=== PATIENT | male | born 1950 | race Caucasian/White ===

== ENCOUNTER → 2016-08-05 | Outpatient (CLI) | payer OTHER ==
[~2016-08-05] MED LIST: ATOR-26 PO; LRT5 PO
[2016-08-05 10:35] LABS: ESTIMATED AVERAGE GLUCOSE 160 mg/dl; HA1C FLAG Normal (Normal)
== END | disposition home or self-care (01) ==
LOC: C.LAB1850 09:03
PROVIDERS: ATTEND Internal Medicine
DX: E78.00 Pure hypercholesterolemia, unspecified (principal); E11.9 Type 2 diabetes mellitus without complications

== ENCOUNTER → 2016-11-30 | Outpatient (CLI) | payer OTHER ==
[2016-11-30 10:19] LABS: BASO % 0.5 %; BASO ABS # 0.04 K/uL (0-0.2); COMPLETE YES; EOS % 3.1 %; HEMATOCRIT 42.5 % (42-52); LYMPH % 20.2 %; MEAN CELL VOLUME 94.4 fL (80-100); MEAN CORPUSCULAR HEMOGLOBIN 31.6 pg (25-34); MEAN CORPUSCULAR HGB CONC 33.4 g/dl (32-36); MEAN PLATELET VOLUME 9.2 fL (7.4-10.4); NEUT % 67.2 %; PLATELET COUNT 234 K/uL (130-400); WHITE BLOOD COUNT 7.42 K/uL (4.8-10.8)
[2016-11-30 10:32] LABS: ALT/SGPT 40 U/L (12-78); AST/SGOT 19 U/L (15-37); BLOOD UREA NITROGEN 16 mg/dl (7-18); CALCIUM 8.4 mg/dl (8.5-10.1); CARBON DIOXIDE 30 mmol/L (21-32); CHLORIDE 107 mmol/L (98-107); CREATININE 0.98 mg/dl (0.60-1.40); GLUCOSE 150 mg/dl (70-99); POTASSIUM 4.4 mmol/L (3.5-5.1); SODIUM 142 mmol/L (136-145)
[2016-11-30 10:37] LABS: CHOLESTEROL 171 mg/dl (0-200); CHOLESTEROL/HDL RATIO 3.6; HDL CHOLESTEROL 47 mg/dl; LDL CHOLESTEROL CALCULATED 99 mg/dl; TRIGLYCERIDES 123 mg/dl (0-150); VERY LOW DENSITY LIPOPROT CALC 25 mg/dl
[2016-11-30 10:58] LABS: ESTIMATED AVERAGE GLUCOSE 154 mg/dl; HA1C FLAG Normal (Normal)
== END | disposition home or self-care (01) ==
LOC: C.LAB1850 09:18
PROVIDERS: ATTEND Physician Assistant
DX: Z11.59 Encounter for screening for other viral diseases (principal); E78.00 Pure hypercholesterolemia, unspecified; E11.9 Type 2 diabetes mellitus without complications

== ENCOUNTER → 2017-03-10 | Outpatient (CLI) | payer OTHER ==
[2017-03-10 10:04] LABS: ESTIMATED AVERAGE GLUCOSE 163 mg/dl; HA1C FLAG Normal (Normal)
== END | disposition home or self-care (01) ==
LOC: C.LAB1850 09:18
PROVIDERS: ATTEND Physician Assistant
DX: E11.9 Type 2 diabetes mellitus without complications (principal)

== ENCOUNTER → 2017-07-26 | Outpatient (CLI) | payer OTHER ==
--- NOTE | 2017-07-27 07:28 | DIAGNOSTIC IMAGING REPORT ---
MRI OF THE LEFT SHOULDER WITHOUT CONTRAST CLINICAL HISTORY: Left shoulder pain following fall. Evaluate for rotator cuff tear. COMPARISON STUDY: No previous studies for comparison. TECHNIQUE: Utilizing a 1.5 Belia magnet, multiplanar, multiecho imaging of the left shoulder was performed without intravenous or intra-articular contrast. FINDINGS: Alignment of the left shoulder is anatomic. There is moderate acromioclavicular joint osteoarthritis and mild glenohumeral joint arthritis. There is no fracture or suspicious marrow or present. There is moderate focal edema within the anterior aspect of the left humeral head. There is intrasubstance increased T2 signal within the proximal long head of the biceps tendon which extends to the anchor. The labrum is suboptimally assessed on this nonarthrogram exam with motion artifact. There is a suspected superior labral tear which extends into the posterior glenoid labrum. Signal abnormality within subscapularis suggests a partial-thickness tear. There is no full-thickness rotator cuff tear. There is tendinopathy of distal supraspinatus. Infraspinatus and teres minor are intact. There is no joint effusion. IMPRESSION: 1. Partial thickness tear of subscapularis. Tendinopathy of distal supraspinatus. No full-thickness rotator cuff tear. No tendon retraction or muscular atrophy. 2. Intrasubstance fluid signal within the proximal long head of the biceps tendon which suggests a partial-thickness tear which likely extends to the anchor. Suspected posterior superior labral tear. 3. Moderate osteoarthritis of the left acromioclavicular joint and mild osteoarthritis of the left glenohumeral joint. Electronically signed by: Marek Archuleta M.D. 07/27/2017 7:27 AM Dictated Date/Time: 07/26/2017 2:38 PM
== END | disposition home or self-care (01) ==
LOC: C.MRIBC 13:33
PROVIDERS: ATTEND Orthopaedic Surgery
DX: M75.102 Unspecified rotator cuff tear or rupture of left shoulder, not specified as traumatic (principal)

== ENCOUNTER → 2017-10-14 | Outpatient (CLI) | payer OTHER ==
[2017-10-14 10:19] LABS: BASO % 0.6 %; BASO ABS # 0.03 K/uL (0-0.2); EOS % 4.2 %; EOS ABS # 0.23 K/uL (0-0.5); HEMATOCRIT 40.6 % (42-52); HEMOGLOBIN 13.9 g/dL (14.0-18.0); LYMPH % 28.5 %; LYMPH ABS # 1.55 K/uL (1.2-3.4); MEAN CELL VOLUME 92.5 fL (80-100); MEAN CORPUSCULAR HEMOGLOBIN 31.7 pg (25-34); MEAN CORPUSCULAR HGB CONC 34.2 g/dl (32-36); MEAN PLATELET VOLUME 8.9 fL (7.4-10.4); MONO % 10.3 %; MONO ABS # 0.56 K/uL (0.11-0.59); NEUT % 56.4 %; NEUT ABS # 3.07 K/uL (1.4-6.5); PLATELET COUNT 238 K/uL (130-400); RED CELL DISTRIBUTION WIDTH CV 12.7 % (11.5-14.5); RED CELL DISTRIBUTION WIDTH SD 42.9 fL (36.4-46.3); WHITE BLOOD COUNT 5.44 K/uL (4.8-10.8)
[2017-10-14 10:34] LABS: ALT/SGPT 39 U/L (12-78); AST/SGOT 19 U/L (15-37); BLOOD UREA NITROGEN 15 mg/dl (7-18); CALCIUM 8.8 mg/dl (8.5-10.1); CARBON DIOXIDE 28 mmol/L (21-32); CREATININE 1.01 mg/dl (0.60-1.40); GLUCOSE 143 mg/dl (70-99); POTASSIUM 4.2 mmol/L (3.5-5.1); SODIUM 138 mmol/L (136-145)
[2017-10-14 10:37] LABS: CHOLESTEROL 170 mg/dl (0-200); LDL CHOLESTEROL CALCULATED 96 mg/dl
[2017-10-14 11:17] LABS: HEMOGLOBIN A1C 7.2 % (4.5-5.6)
== END | disposition home or self-care (01) ==
LOC: C.LAB1850 09:14
PROVIDERS: ATTEND Physician Assistant
DX: E78.00 Pure hypercholesterolemia, unspecified (principal); E11.9 Type 2 diabetes mellitus without complications

== ENCOUNTER → 2017-10-18 | Outpatient (CLI) | payer OTHER ==
[~2017-10-18] MED LIST changes: +OPTIRAY 320 IV PRN
--- NOTE | 2017-10-18 14:47 | DIAGNOSTIC IMAGING REPORT ---
HEAD CT WITH AND WITHOUT INTRAVENOUS CONTRAST HISTORY: H53.2 Diplopia TECHNIQUE: Multiaxial CT images of the head were performed both before and after the intravenous administration of contrast. COMPARISON STUDY: None. FINDINGS: Partial passive use of the right ethmoid air cells. The remaining paranasal sinuses and mastoid air cells are clear. The calvarium and skull base are intact. There is no mass, hematoma, midline shift, acute infarct. The ventricles and sulci are within normal limits. Small hypodense focus within the right caudate head is consistent with an old lacunar infarct. No abnormal enhancement. The orbits are unremarkable. IMPRESSION: 1. No acute intracranial abnormality. 2. No abnormal enhancement or masses within the brain. 3. Punctate old lacunar infarct within the right caudate head. Electronically signed by: Sergei Rascon M.D. 10/18/2017 2:45 PM Dictated Date/Time: 10/18/2017 2:36 PM
== END | disposition home or self-care (01) ==
LOC: C.CTS 13:43
PROVIDERS: ATTEND Physician Assistant
DX: H53.2 Diplopia (principal)

== ENCOUNTER → 2018-01-13 | Outpatient (CLI) | payer OTHER ==
[~2018-01-13] MED LIST changes: -OPTIRAY 320 IV PRN
[2018-01-13 09:52] LABS: HEMOGLOBIN A1C 7.3 % (4.5-5.6)
== END | disposition home or self-care (01) ==
LOC: C.LAB1850 08:44
PROVIDERS: ATTEND Physician Assistant
DX: E11.9 Type 2 diabetes mellitus without complications (principal)

== ENCOUNTER 2025-01-22 15:31 | Observation (INO) ==
[2025-01-22] MEDS: OPTIRAY 320 125ml IV ONE (15:38)
--- NOTE | 2025-01-22 15:54 | CT Scan Report ---
CT head/brain wo con CLINICAL HISTORY: 74 years-old Male with neuro deficit, acute stroke suspected. Acute stroke like sy mptoms with confusion and facial droop TECHNIQUE: Multiple axial CT images of the head were obtained without contrast. A dose lowering tech nique was utilized adhering to the principles of ALARA. CT DOSE: 1056.37 mGy.cm COMPARISON: CTA head of same day FINDINGS: No acute intracranial hemorrhage, midline shift, intracranial mass, hydrocephalus, territorial ischem ia or abnormal extra-axial collection. Involutional changes with white matter hypodensities suggestiv e of chronic microvascular ischemic disease. Probable chronic tiny lacunar infarct of the right cauda te nuclear head. The calvarium is intact. Prior bilateral lens repair. The paranasal sinuses, mastoid air cells, and m iddle ear cavities are clear. IMPRESSION: No acute intracranial abnormality. ACT 112: Negative or not required by law. The above report was generated using voice recognition software. It may contain grammatical, syntax o r spelling errors. Electronically signed by: Imtiaz Hurst M.D. 01/22/2025 3:53 PM
--- NOTE | 2025-01-22 15:58 | CT Scan Report ---
CT angio head w con CLINICAL HISTORY: neuro deficit, acute stroke suspected. TECHNIQUE: Unenhanced axial CT scan of the brain is performed. Subsequently, following the IV adminis tration of 120 cc of Optiray, CT angiogram of the brain was performed from the skull base to the vert ex. Images are reviewed in the axial, sagittal, and coronal planes. 3-D MIPS images are created and a ssessed. IV contrast was administered without complication. All measurements were obtained according to NASCET criteria. A dose lowering technique was utilized adhering to the principles of ALARA. CT DOSE: 1056 COMPARISON STUDY: None FINDINGS: Distal internal carotid and vertebral arteries show no significant narrowing or occlusion. Anterior, middle, and posterior cerebral arteries are patent bilaterally. 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 No intracranial aneurysm seen. Cerebral venous sinuses opacify normall y. IMPRESSION: No significant arterial narrowing or occlusion seen at the brain. ACT 112: Negative or not required by law. The above report was generated using voice recognition software. It may contain grammatical, syntax o r spelling errors. Electronically signed by: Martin Blanc M.D. 01/22/2025 3:57 PM
--- NOTE | 2025-01-22 15:58 | CT Scan Report ---
CT angio neck with con CLINICAL HISTORY: 74 years-old Male with neuro deficit, acute stroke suspected. Acute stroke like symptoms COMPARISON STUDY: CTA head of same day TECHNIQUE: Following the IV administration of 119 mL of Optiray, CT angiogram of the neck was perform ed from the aortic arch to the skull base. Images are reviewed in the axial, sagittal, and coronal pl anes. 3-D MIPS images are created and assessed. IV contrast was administered without complication. Al l measurements were calculated based on NASCET criteria. A dose lowering technique was utilized adhe ring to the principles of ALARA. FINDINGS: Three-vessel morphology of the thoracic cord. Patency of the innominate and image subclavian arteries . Atherosclerosis of the carotid bulbs without high-grade stenosis. Patent and codominant vertebral a rteries. The basilar artery also appears patent. Stenosis of the left breast right V2 segments of the vertebral arteries at the level of C5-C6 secondary to a circumferential disc osteophyte complex with facet arthrosis. This causes approximately 70 % stenosis of the left vertebral artery. Lung apices appear clear. Emphysema with bronchial wall thickening. Mild biapical pleural-parenchymal scarring. Areas of mild mucous plugging. Multinodular thyroid goiter. Unremarkable soft tissues. 1.5 cm left maxillary sinus polyp. Degenerative changes of the cervical spine. IMPRESSION: 1. Atherosclerosis of the carotid bulbs without significant stenosis. 2. Short segment high-grade stenosis of the V2 segment left vertebral artery at the level of C5-C6 se condary to a circumferential disc osteophyte complex with facet arthrosis ACT 112: Negative or not required by law. The above report was generated using voice recognition software. It may contain grammatical, syntax o r spelling errors. Electronically signed by: Imtiaz Hurst M.D. 01/22/2025 3:57 PM
--- NOTE | 2025-01-22 16:06 | Emergency Department Note ---
Impression & Plan Facial droop, Acute left-sided weakness, Stroke-like symptoms, Hypomagnesemia, Hypocalcemia, Anemia ED Provider Note NAME: SAMEER MONTAÑO AGE: 74 SEX: M : 1950 ARRIVES VIA: Ambulance INFORMANT: [Patient][EMS] ED PROVIDER(S): [Luis Talavera MD] Patient first seen by me at 1545 CHIEF COMPLAINT: Stroke alert HISTORY OF PRESENT ILLNESS: Patient is a 74-year-old male who states that he woke up normal at around 530 this morning. At around 7-730, around 9 hours ago, he noticed his left face was droopy and he had some drooling from the left side of his mouth--he did not seek medical attention. Later in the day, the patient was doing work outside and felt that the left side of his body was weaker than the right. The left facial droop was persisting. He eventually went to urgent care and then was referred to our ER. The patient denies any chest pain or shortness of breath. He has never had a CVA. He has no headache. PMHx/PSHx/Social Hx: See Below PHYSICAL EXAM: GENERAL: Patient is in no acute distress. HEENT: No acute trauma, normocephalic atraumatic, mucous membranes moist, no nasal congestion. NECK: No stridor, no adenopathy, no meningismus, trachea is midline. LUNGS: Wheezing heard bilaterally, no respiratory distress. HEART: Without murmurs gallops or rubs, regular rate and rhythm. ABDOMEN: Soft, nontender, no peritonitis. EXTREMITIES: No cyanosis, full range of motion of all the joints without pain or difficulty. NEUROLOGIC: Oriented x 3. There is no extremity drift or cerebellar dysfunction. He does have a left facial droop. He has normal movement of the muscles of the forehead and can close the left eye normally. SKIN: No jaundice, no diaphoresis. DIFFERENTIAL DIAGNOSIS: CVA, Wang's palsy, intracranial bleeding, dehydration, tickborne illness, among others. EMERGENCY DEPARTMENT PROCEDURES: MEDICAL DECISION MAKING: There is no leukocytosis. A mild anemia was seen with a hemoglobin of 11.2. There was a normal platelet count. No coagulopathy. No renal failure. Magnesium and calcium were both low. No worrisome liver enzyme elevation. ECG showed a normal sinus rhythm, no ischemia or dysrhythmia. Cardiac enzyme testing x 1 was not consistent with acute cardiac injury. Chest x-ray showed some chronic change, no pneumonia. Anaplasmosis and Babesia smears were negative. Lyme disease testing was negative. Brain CT showed no acute bleed or mass effect. CTA of the head and neck were performed. There was some vertebral stenosis secondary to some cervical disease. No clot/thrombus seen. No aneurysm. On exam, the patient had a left facial droop but no significant deficits noted in his upper or lower extremities. The patient had presented at this is a stroke alert, this was called in the field. He went directly to CT scan and I performed my assessment afterwards. The stroke neurologist was consulted and an assessment was performed via telemedicine. The patient is not a TNK candidate. He is out of the window for TNK, his symptoms began sometime this morning. Admission, further stroke workup was felt warranted. In short, the patient has some subtle neurologic symptoms. He is already on dual antiplatelet therapy. During his hospital stay, the chemistries can be corrected. He can be closely monitored. Further imaging may be performed. I spoke with the patient and case management. The on-call hospitalist was consulted. Prior/Outside records/notes reviewed: Today's EMS notes describing his presentation and transport to this hospital. ECG per my interpretation: Indication was for possible stroke. The ECG shows a normal sinus rhythm with a rate of 82. There is no ST elevation, no PVCs. The QTc is 439. Continuous Cardiac Monitoring per my interpretation: An order was placed for continuous cardiac monitoring. The monitor shows a rate of 87 with normal sinus rhythm. Imaging/x-ray results per my interpretation: Chest x-ray shows some chronic changes, no focal infiltrate or CHF. Chronic Medical/Social conditions affecting care: Advanced age. Care/Management discussed with: Sonam stroke telemetry neurologist-Dr. Paul. Case management and the on-call hospitalist. Level of care consideration(s): After review of the information above and other included data: --I believe the patient requires escalation of care to admission Critical Care Note: I have personally spent 48 minutes of critical care time in the direct management of this patient. This includes bedside care, interpretation of diagnostic studies, and testing, discussion with consultants, patient, and family members, and other required patient management activities. This 48 minutes is in excess of all separately billable procedures. DISPOSITION: Admission Past Med/Surg History Problem List (Updated 01/22/25 @ 18:13 by Luis Talavera MD) Anemia (Acute) Hypocalcemia (Acute) Hypomagnesemia (Acute) Stroke-like symptoms (Acute) Acute left-sided weakness (Acute) Facial droop (Acute) Facial droop Stroke Chest pain (Acute) Non-ST elevation AR (NSTEMI) (Acute) Depression History of cleft palate Dysphagia BPH (benign prostatic hyperplasia) Left upper lobe pulmonary nodule Coronary artery calcification Peripheral arterial disease Neurogenic claudication due to lumbar spinal stenosis Spinal stenosis of lumbar region Heavy tobacco smoker current, 60pkyr history Midline low back pain with bilateral sciatica Bilateral hearing loss bilat hearing aids Chronic otitis externa (Chronic) Cataract Dupuytren's contracture of hand (Acute) Cerumen impaction Hearing loss Erectile disorder due to medical condition in male Medical History CAD (coronary artery disease) Benign essential hypertension Type 2 diabetes mellitus without complication, with no history of insulin use Hypercholesterolemia Actinic keratosis Situational stress Dupuytren's contracture of hand Hyperlipidemia Surgical History History of tooth extraction History of uvulectomy History of corrected cleft lip and palate Family History Other No family history of adverse response to anesthesia No family history of bleeding disorder Denies family history of Ovarian cancer Prostate cancer Clotting disorder Heart disease Myocardial infarction Breast cancer Colorectal cancer Cancer Hypertension Stroke Asthma Social History Smoking Status: Current every day smoker Tobacco Type: Cigarettes Age Started Using Tobacco: 10; packs per day: 1; Cigarettes Per Day: 1/2 PPD; Second Hand Exposure: Yes; Do You Dip or Chew Tobacco: No; Hx Alcohol Use: No Hx Substance Use: No Preferred Language: Sinhala Communication Ability: Effective Visual Impairment: No Limitations Hearing Ability: Normal Auxiliary Operator Required: No Beliefs That Will Affect Care: None marital status: Current Living Situation: Alone Current Living Situation Comment: single family home current occupational status: retired 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, 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 Safe at Home: Yes Childhood Exposure to Second-Hand Smoke: No Dental Care, Regularly: No Physical Activity Frequency: 3-4 Times per Week Seatbelt Use: never Sunscreen Use: Yes Assistive Devices: Walker Allergies Allergies Allergy/AdvReac Type Severity Reaction Status Date / Time No Known Drug Allergies Allergy Verified 01/01/25 14:12 Home Meds Home Medications Medication Instructions Recorded Confirmed ascorbic acid (vitamin C) 500 mg 500 mg PO QAM 02/01/19 01/22/25 tablet multivitamin (Daily Multi-Vitamin 1 tab PO QDD 02/01/19 01/22/25 tablet) ibuprofen 200 mg tablet 200 mg PO Q6H PRN Pain 07/31/21 01/22/25 omega 0-spj-wkc-fish oil 1,200 mg 1 cap PO QDD 11/08/24 01/22/25 (144 mg-216 mg) capsule (Fish Oil) pyridoxine (vitamin B6) 100 mg 200 mg PO QDD 11/08/24 01/22/25 tablet (Vitamin B-6) bupropion HCl 150 mg tablet,12 hr 150 mg PO QAM 01/22/25 01/22/25 sustained-release Previous Rx's Medication Instructions Recorded aspirin 81 mg tablet,delayed 81 mg PO DAILY #30 tabs 07/16/21 release cyanocobalamin (vitamin B-12) 1,000 mcg PO DAILY #90 caps 04/26/22 1,000 mcg capsule blood-glucose meter (OneTouch #1 ea 07/27/22 Verio Meter) lancing device with lancets kit #1 ea 07/27/22 (OneTouch Delica Plus Lancing Device kit) dapagliflozin propanediol 10 mg 10 mg PO DAILY #90 tabs 03/28/24 tablet (Farxiga) metformin 500 mg tablet,extended 1,000 mg (2 x 500 mg) PO BID #360 08/03/24 release 24 hr tabs blood sugar diagnostic (OneTouch #100 ea 08/14/24 Verio test strips) dulaglutide 1.5 mg/0.5 mL 1.5 mg (0.5 mL) subcut WK #6 mL 09/06/24 subcutaneous pen injector omeprazole 40 mg capsule,delayed 40 mg PO DAILY #90 caps 09/10/24 release nitroglycerin 0.4 mg sublingual 0.4 mg sublingual Q5M PRN chest 11/09/24 tablet (Nitrostat) pain #25 tabs metoprolol tartrate 50 mg tablet 50 mg PO BID #180 tabs 11/16/24 rosuvastatin 40 mg tablet 40 mg PO DAILY #90 tabs 11/16/24 ticagrelor 90 mg tablet (Brilinta) 90 mg PO BID #180 tabs 11/16/24 Results & Data (ED) Vital Signs Vital Signs - 24 hr 01/22/25 15:31 01/22/25 15:45 01/22/25 15:50 Temperature 36.9 C Temperature Source Oral Pulse Rate 79 87 87 Pulse Rate [Apical] Pulse Rate from SpO2 Sensor 86 Pulse Rhythm [Apical] Respiratory Rate 19 18 Respiratory Effort / Characteristics Non-Labored Respiratory Depth Normal Respiratory Pattern Regular Blood Pressure 126/71 126/71 Blood Pressure [Right Arm] Blood Pressure Mean 89 95 Blood Pressure Mean [Right Arm] Pulse Oximetry 96 96 Oxygen Delivery Method Room Air Sepsis Recent Fever Within 48 Hours No Sepsis New/Unexplained Change in Mental Status N/A Sepsis Action Taken by Nursing No Action Required 01/22/25 16:00 01/22/25 16:30 01/22/25 17:00 Temperature Temperature Source Pulse Rate 81 85 Pulse Rate [Apical] 82 Pulse Rate from SpO2 Sensor 81 85 Pulse Rhythm [Apical] Regular Respiratory Rate 27 H 17 22 Respiratory Effort / Characteristics Non-Labored Respiratory Depth Normal Respiratory Pattern Regular Blood Pressure 116/77 114/64 Blood Pressure [Right Arm] 131/78 Blood Pressure Mean 83 80 Blood Pressure Mean [Right Arm] 95 Pulse Oximetry 97 95 98 Oxygen Delivery Method Room Air Sepsis Recent Fever Within 48 Hours Sepsis New/Unexplained Change in Mental Status Sepsis Action Taken by Nursing 01/22/25 17:35 Temperature Temperature Source Pulse Rate Pulse Rate [Apical] 80 Pulse Rate from SpO2 Sensor Pulse Rhythm [Apical] Respiratory Rate 18 Respiratory Effort / Characteristics Non-Labored Spontaneous Respiratory Depth Respiratory Pattern Blood Pressure Blood Pressure [Right Arm] 141/75 H Blood Pressure Mean Blood Pressure Mean [Right Arm] 97 Pulse Oximetry 97 Oxygen Delivery Method Room Air Sepsis Recent Fever Within 48 Hours Sepsis New/Unexplained Change in Mental Status Sepsis Action Taken by Intermediate Medications Current Medication List: was personally reviewed by me Laboratory Data Attestation: I reviewed the patient's lab results. 01/22/25 15:47 01/22/25 15:47 Lab Results 01/22/25 01/22/25 01/22/25 Range/Units 15:47 15:49 16:19 WBC 6.46 (4.8-10.8) K/ul RBC 3.38 L (4.70-6.10) M/uL Hgb 11.2 L (14.0-18.0) g/dl POC Hgb 10.5 L (14.0-18.0) g/dl Hct 32.5 L (42.0-52.0) % POC Hct 31 L (42-52) % MCV 96.2 (80.0-100.0) fL MCH 33.1 (25.0-34.0) pg MCHC 34.5 (32.0-36.0) g/dL RDW Std Deviation 45.9 (36.4-46.3) fL RDW Coeff of Rene 13.1 (11.5-14.5) % Plt Count 197 (130-400) K/uL MPV 9.1 L (9.4-12.4) fL Immature Gran % (Auto) 0.2 % Neut % (Auto) 57.4 % Lymph % (Auto) 27.9 % [facility] % (Auto) 10.2 % Eos % (Auto) 3.7 % Baso % (Auto) 0.6 % Neut # (Auto) 3.71 (1.40-6.50) K/uL Lymph # (Auto) 1.80 (1.20-3.40) K/uL [facility] # (Auto) 0.66 H (0.11-0.59) K/uL Eos # (Auto) 0.24 (0.00-0.50) K/uL Baso # (Auto) 0.04 (0.00-0.20) K/uL Immature Gran # (Auto) 0.01 (0.01-0.20) K/uL PT 11.6 (9.0-12.0) Seconds INR 1.1 (0.9-1.1) APTT 27 (21-31) Seconds PTT Ratio 1.0 POC Sodium 138 (135-144) mmol/L Sodium 135 L (136-145) mmol/L POC Potassium 3.5 (3.3-5.0) mmol/L Potassium 3.5 (3.5-5.1) mmol/L POC Chloride 101 (101-112) mmol/L Chloride 106 (98-107) mmol/L Carbon Dioxide 25 (21-32) mmol/L POC Total CO2 21 L (24-31) mmol/L Anion Gap 4 (3-11) POC Anion Gap 20.0 (16-25) mmol/L POC BUN 19 H (7-18) mg/dl BUN 22 (6-23) mg/dl Creatinine 1.00 (0.6-1.4) mg/dl POC Creatinine 1.1 (0.6-1.3) mg/dl Est Cr Clr Drug Dosing 58.4 ml/min eGFR 78.49 BUN/Creatinine Ratio 22.0 H (10-20) Glucose 175 H (70-99(Fasting)) mg/dl POC Glucose (other) 168 H (70-99) mg/dl Calcium 7.7 L (8.6-10.3) mg/dl POC Ioniz Calcium Adriana 1.08 L (1.12-1.32) mmol/l Magnesium 1.2 L (1.7-2.4) mg/dl Total Bilirubin 0.3 (0.2-1.0) mg/dl AST 16 (13-39) U/L ALT 28 (7-52) U/L Alkaline Phosphatase 39 (34-104) U/L Troponin I High Sens 3.7 (0-20) pg/ml Total Protein 5.4 L (6.0-8.3) gm/dl Albumin 3.4 (3.4-5.0) gm/dl Globulin 2.0 L (2.5-4.0) gm/dl Albumin/Globulin Ratio 1.7 (0.9-2) Anaplasma Smear See Comment Babesia Smear See Comment Lyme Disease Screen Negative (Negative) Administered Medications Magnesium Sulfate/Dextrose (Magnesium Sulfate / D5w) 1 gm in 100 mls @ 100 mls/hr IV Q1H HILDA Stop: 01/22/25 18:43 Last Admin: 01/22/25 16:56 Dose: 100 mls/hr Documented By: CECILIA Sodium Chloride (Nss) 1,000 mls @ 55 mls/hr IV .[id number] HILDA Stop: 01/24/25 05:51 Last Admin: 01/22/25 17:31 Dose: 55 mls/hr Documented By: CHENG Discontinued Medications Aspirin (Aspirin 81 Mg Ectab) 162 mg PO ONCE ONE Stop: 01/22/25 16:55 Last Admin: 01/22/25 17:23 Dose: 162 mg Documented By: CECILIA Calcium Gluconate () 1,000 mg in 60 mls @ 240 mls/hr IV NOW STA Stop: 01/22/25 16:58 Last Infusion: 01/22/25 17:34 Dose: Infused Documented By: Admin: 01/22/25 16:56 Dose: 240 mls/hr Documented By: CECILIA Ioversol (Optiray 320 125ml) 119 ml IV ONCE ONE Stop: 01/22/25 15:39 Last Admin: 01/22/25 15:38 Dose: 119 ml Documented By: SUSY Imaging Data Radiologist's Impression: Chest X-Ray 01/22/25 15:35 Technique: A frontal view of the chest was obtained Comparison is made to the prior examination dated 12/17/2024 Findings: There are no confluent pulmonary infiltrates. The heart size is within normal limits. No pleural effusion or pneumothorax is seen. There is no definite pulmonary nodule. No fracture is noted. There is mild scoliosis Impression: No active disease Electronically signed by Favian Munson 01-22-2025 4:[address] 01/22/25 15:35 CT head/brain wo con CLINICAL HISTORY: 74 years-old Male with neuro deficit, acute stroke suspected. Acute stroke like symptoms with confusion and facial droop TECHNIQUE: Multiple axial CT images of the head were obtained without contrast. A dose lowering technique was utilized adhering to the principles of ALARA. CT DOSE: 1056.37 mGy.cm COMPARISON: CTA head of same day FINDINGS: No acute intracranial hemorrhage, midline shift, intracranial mass, hydrocephalus, territorial ischemia or abnormal extra-axial collection. Involutional changes with white matter hypodensities suggestive of chronic microvascular ischemic disease. Probable chronic tiny lacunar infarct of the right caudate nuclear head. The calvarium is intact. Prior bilateral lens repair. The paranasal sinuses, mastoid air cells, and middle ear cavities are clear. IMPRESSION: No acute intracranial abnormality. ACT 112: Negative or not required by law. The above report was generated using voice recognition software. It may contain grammatical, syntax or spelling errors. Electronically signed by: Imtiaz Hurst M.D. 01/22/2025 3:53 PM Head CTA 01/22/25 15:35 CT angio head w con CLINICAL HISTORY: neuro deficit, acute stroke suspected. TECHNIQUE: Unenhanced axial CT scan of the brain is performed. Subsequently, following the IV administration of 120 cc of Optiray, CT angiogram of the brain was performed from the skull base to the vertex. Images are reviewed in the axial, sagittal, and coronal planes. 3-D MIPS images are created and assessed. IV contrast was administered without complication. All measurements were obtained according to NASCET criteria. A dose lowering technique was utilized adhering to the principles of ALARA. CT DOSE: 1056 COMPARISON STUDY: None FINDINGS: Distal internal carotid and vertebral arteries show no significant narrowing or occlusion. Anterior, middle, and posterior cerebral arteries are patent bilaterally. There is origin of the right FLUE CLEANER, anatomic variant. No intracranial aneurysm seen. Cerebral venous sinuses opacify normally. IMPRESSION: No significant arterial narrowing or occlusion seen at the brain. ACT 112: Negative or not required by law. The above report was generated using voice recognition software. It may contain grammatical, syntax or spelling errors. Electronically signed by: Martin Blanc M.D. 01/22/2025 3:57 PM Neck CTA 01/22/25 15:35 CT angio neck with con CLINICAL HISTORY: 74 years-old Male with neuro deficit, acute stroke suspected. Acute stroke like symptoms COMPARISON STUDY: CTA head of same day TECHNIQUE: Following the IV administration of 119 mL of Optiray, CT angiogram of the neck was performed from the aortic arch to the skull base. Images are reviewed in the axial, sagittal, and coronal planes. 3-D MIPS images are created and assessed. IV contrast was administered without complication. All measurements were calculated based on NASCET criteria. A dose lowering technique was utilized adhering to the principles of ALARA. FINDINGS: Three-vessel morphology of the thoracic cord. Patency of the innominate and image subclavian arteries. Atherosclerosis of the carotid bulbs without high- grade stenosis. Patent and codominant vertebral arteries. The basilar artery also appears patent. Stenosis of the left breast right V2 segments of the vertebral arteries at the level of C5-C6 secondary to a circumferential disc osteophyte complex with facet arthrosis. This causes approximately 70 % stenosis of the left vertebral artery. Lung apices appear clear. Emphysema with bronchial wall thickening. Mild biapical pleural-parenchymal scarring. Areas of mild mucous plugging. Multinodular thyroid goiter. Unremarkable soft tissues. 1.5 cm left maxillary sinus polyp. Degenerative changes of the cervical spine. IMPRESSION: 1. Atherosclerosis of the carotid bulbs without significant stenosis. 2. Short segment high-grade stenosis of the V2 segment left vertebral artery at the level of C5-C6 secondary to a circumferential disc osteophyte complex with facet arthrosis ACT 112: Negative or not required by law. The above report was generated using voice recognition software. It may contain grammatical, syntax or spelling errors. Electronically signed by: Imtiaz Hurst M.D. 01/22/2025 3:57 PM Discharge Plan Visit Data Chief Complaint: Stroke Alert Stated Complaint: STROKE ALERT ED Provider: Luis Talavera Discharge Problem: Facial droop, Acute left-sided weakness, Stroke-like symptoms, Hypomagnesemia, Hypocalcemia, Anemia Patient Disposition: Admitted As Inpatient Condition: Serious Forms Stand Alone Forms: [facility] [employer] Prescriptions Prescriptions: No Action ibuprofen 200 mg tablet 200 mg PO Q6H PRN (Reason: Pain) aspirin 81 mg tablet,delayed release (DR/EC) 81 mg PO DAILY Qty: 30 2RF Farxiga 10 mg tablet 10 mg PO DAILY Qty: 90 3RF metformin 500 mg tablet extended release 24 hr 1,000 mg PO BID Qty: 360 3RF (DME) OneTouch Verio test strips Strip See Rx Instructions .Route Qty: 100 3RF Rx Instructions: As directed to check sugars up to twice daily dulaglutide 1.5 mg/0.5 mL pen injector 1.5 mg subcut WK Qty: 6 3RF Rx Instructions: ascorbic acid (vitamin C) 500 mg tablet 500 mg PO QAM multivitamin [Daily Multi-Vitamin] tablet 1 tab PO QDD (DME) blood-glucose meter [OneTouch Verio Meter] [facility] [place] See Rx Instructions .Route Qty: 1 0RF Rx Instructions: As directed to check sugars up to twice daily (DME) lancing device with lancets [ISIGN MediaTouch Delica Plus Lanc Dev] Kit See Rx Instructions .Route Qty: 1 0RF Rx Instructions: As directed to check sugars up to twice daily cyanocobalamin (vitamin B-12) 1,000 mcg capsule 1,000 mcg PO DAILY Qty: 90 3RF rosuvastatin 40 mg tablet 40 mg PO DAILY Qty: 90 3RF metoprolol tartrate 50 mg tablet 50 mg PO BID Qty: 180 3RF ticagrelor [Brilinta] 90 mg tablet 90 mg PO BID Qty: 180 3RF omeprazole 40 mg capsule,delayed release(DR/EC) 40 mg PO DAILY Qty: 90 1RF pyridoxine (vitamin B6) [Vitamin B-6] 100 mg Tablet 200 mg PO QDD omega 3-ozm-lpf-fish oil [Fish Oil] 1,200 (144-216) mg Capsule 1 cap PO QDD nitroglycerin [Nitrostat] 0.4 mg Tablet, Sublingual 0.4 mg sublingual Q5M PRN (Reason: chest pain) Qty: 25 4RF bupropion HCl 150 mg tablet sustained-release 12 hr 150 mg PO QAM Referrals Referrals: Buffy Perales MD [Primary Care Provider] - Discharge Problem: Anemia Qualifiers: Anemia type: unspecified type Qualified Code(s): D64.9 - Anemia, unspecified
[2025-01-22 16:28] LABS: Hematocrit (blood only) 32.5 % (42.0-52.0); Hemoglobin 11.2 g/dl (14.0-18.0); Immature Granulocytes # (auto) 0.01 K/uL (0.01-0.20); Immature Granulocytes % (auto) 0.2 %; Mean Corpuscular Hemoglobin 33.1 pg (25.0-34.0); Mean Corpuscular Volume 96.2 fL (80.0-100.0); Platelet Count 197 K/uL (130-400); RDW Standard Deviation 45.9 fL (36.4-46.3); Red Blood Count 3.38 M/uL (4.70-6.10); White Blood Count 6.46 K/ul (4.8-10.8)
--- NOTE | 2025-01-22 16:31 | XRay Report ---
Technique: A frontal view of the chest was obtained Comparison is made to the prior examination dated 12/17/2024 Findings: There are no confluent pulmonary infiltrates. The heart size is within normal limits. No pleural effusion or pneumothorax is seen. There is no definite pulmonary nodule. No fracture is noted. There is mild scoliosis Impression: No active disease Electronically signed by Favian Munson 01-22-2025 4:31 PM
[2025-01-22 16:42] LABS: Alanine Aminotransferase 28.0 U/L (7-52); Albumin Globulin Ratio 1.7 (0.9-2); Alkaline Phosphatase 39.0 U/L (34-104); Anion Gap 4.0 (3-11); Bilirubin,Total 0.3 mg/dl (0.2-1.0); Blood Urea Nitrogen 22.0 mg/dl (6-23); Calcium 7.7 mg/dl (8.6-10.3); Carbon Dioxide 25.0 mmol/L (21-32); Chloride 106.0 mmol/L (98-107); Creatinine Clr Calc Pharmacy 58.4 ml/min; Globulin 2.0 gm/dl (2.5-4.0); Glucose 175.0 mg/dl (70-99(Fasting)); Magnesium 1.2 mg/dl (1.7-2.4); Potassium 3.5 mmol/L (3.5-5.1); Sodium 135.0 mmol/L (136-145); Total Protein 5.4 gm/dl (6.0-8.3)
[2025-01-22 16:54] LABS: INR 1.1 (0.9-1.1); Partial Thromboplastin Time 27 Seconds (21-31); Prothrombin Time 11.6 Seconds (9.0-12.0)
[2025-01-22] MEDS: MAGNESIUM SULFATE / D5W 1 GM/100 ML BAG IV SCH (16:56)
[2025-01-22] MEDS: CALCIUM GLUCONATE 1,000 MG/60 ML BAG IV STA (16:56)
[2025-01-22] MEDS: ASPIRIN 81 MG ECTAB PO ONE (17:23)
--- NOTE | 2025-01-22 17:29 | History & Physical Report ---
Date of Service January 22, 2025 Assessment & Plan (1) Stroke: Plan: Mr. Riccardo Miranda is a 74 yo male with PMH of CAD s/p stent to RCA, smoking (2ppd since age 9), diabetes, lung nodules, mood disorder he's cutting down to half pack per day. was in the hospital recently for chest pain and s/p PCI, recommened aspirin and brilinta for 1-2 years on Tuesday he's noticed facial droop around 7am, his facial droop persist and he's came to our hospital for evaluation his CTA show stenosis in the vertebral artery (V2 segment, left side at the c5- c6 origin). plan for brain MRI w/wo contrast. CVA rule out. he will has echo with bubble studies to r/o PFO he's likely need event monitor 1. left side facial droop, acute CVA 2. hx of smoking (2 ppd since age 9) 3. CAD s/p PCI to RCA on brilinta and aspirin 4. lung nodule 5. diabetes 6. mood disorder. 7. GERD 1. left side facial droop, likely CVA, brain MRI w/wo contrast ruling out brain mass f/u on lyme titer. aspirin, high dose statin. echo to r/o PFO, event monitor IV fluid for 24 hours for permissive hypertension he's smoke 2ppd since age 9, recently cut down to half pack 2. CAD s/p PCI to RCA Brilinta and aspirin s/p aspirin 162mg today. increasing PPI to BID metoprolol tartrate 50mg BID, 3. diabetes, he's on jardian 10mg daily. he's on dlaglutide 1.5mg weekly injection hold hold med of metformin 1000mg BID 4. mood disorder; sertalin 50mg daily; wellbutrin 300mg ER 5. GERd, he's normally on omeprazole 40mg daily while increase his aspirin dose, give PPI BID (2) Facial droop: History of Present Illness Chief Complaint: left facial droop since 7am (on Tuesday) CVA rule out (hx of smoking 2 ppd since age 9) Primary Care Provider: Buffy Perales MD Riccardo Miranda is a 74 yo male with PMH of CAD s/p stent, smoking (2ppd since age 9) , pulmonary nodules. diabetes,mood disorder. he was in the hospital for chest pain and found to has severe RCA disease and s/p PCI and on aspirin, brilinta and crestor 40mg he's recently cut down to half pack per day on 01/22, he's woke up at 5am, and then when look into the mirror at 7am, he's noticed severe side left facial droop he took his morning med, but then facial droop persist and came to our hospital for stroke evaluation. his CTA found short term high grade stenosis of V2 segment of left vertebray artery at the level of c5-c6. our ED attending also evaluating him for lyme disease, anaplasma, babesia on interview at 5pm, he's still has facial droop denied any focal weakness, no sensory change, no problem with comprehension and expressive himself he's outside the t-PA window he's mentioned having taken aspirin and brilinta this morning he will be admitted for stroke evaluation, started him on aspirin 81mg, plan to increase his protonix from qd to BID. he's is full code his is in custodial with dementia his niece (Lor) live in [facility] (contact number is [phone]) no palpitation, no chest pain, no shortness of breath Allergies Allergy/AdvReac Type Severity Reaction Status Date / Time No Known Drug Allergies Allergy Verified 01/01/25 14:12 Home Medications Medication Instructions Recorded Confirmed Type ascorbic acid (vitamin C) 500 mg 500 mg PO QAM 02/01/19 01/22/25 History tablet multivitamin (Daily Multi-Vitamin 1 tab PO QDD 02/01/19 01/22/25 History tablet) aspirin 81 mg tablet,delayed 81 mg PO DAILY #30 tabs 07/16/21 01/22/25 Rx release ibuprofen 200 mg tablet 200 mg PO Q6H PRN Pain 07/31/21 01/22/25 History cyanocobalamin (vitamin B-12) 1,000 mcg PO DAILY #90 caps 04/26/22 01/22/25 Rx 1,000 mcg capsule blood-glucose meter ([employer] #1 ea 07/27/22 01/22/25 Rx Verio Meter) lancing device with lancets kit #1 ea 07/27/22 01/22/25 Rx (CanatuTouch Delica Plus Lancing Device kit) dapagliflozin propanediol 10 mg 10 mg PO DAILY #90 tabs 03/28/24 01/22/25 Rx tablet (Farxiga) metformin 500 mg tablet,extended 1,000 mg (2 x 500 mg) PO BID #360 08/03/24 01/22/25 Rx release 24 hr tabs blood sugar diagnostic (OneTouch #100 ea 08/14/24 01/22/25 Rx Verio test strips) dulaglutide 1.5 mg/0.5 mL 1.5 mg (0.5 mL) subcut WK #6 mL 09/06/24 01/22/25 Rx subcutaneous pen injector omeprazole 40 mg capsule,delayed 40 mg PO DAILY #90 caps 09/10/24 01/22/25 Rx release omega 7-lra-jcb-fish oil 1,200 mg 1 cap PO QDD 11/08/24 01/22/25 History (144 mg-216 mg) capsule (Fish Oil) pyridoxine (vitamin B6) 100 mg 200 mg PO QDD 11/08/24 01/22/25 History tablet (Vitamin B-6) nitroglycerin 0.4 mg sublingual 0.4 mg sublingual Q5M PRN chest 11/09/24 01/22/25 Rx tablet (Nitrostat) pain #25 tabs metoprolol tartrate 50 mg tablet 50 mg PO BID #180 tabs 11/16/24 01/22/25 Rx rosuvastatin 40 mg tablet 40 mg PO DAILY #90 tabs 11/16/24 01/22/25 Rx ticagrelor 90 mg tablet (Brilinta) 90 mg PO BID #180 tabs 11/16/24 01/22/25 Rx bupropion HCl 150 mg tablet,12 hr 150 mg PO QAM 01/22/25 01/22/25 History sustained-release Past Med/Surg History Problem List (Updated 01/22/25 @ 17:41 by Reyna Liu DO) Facial droop Stroke Chest pain (Acute) Non-ST elevation TX (NSTEMI) (Acute) Depression History of cleft palate Dysphagia BPH (benign prostatic hyperplasia) Left upper lobe pulmonary nodule Coronary artery calcification Peripheral arterial disease Neurogenic claudication due to lumbar spinal stenosis Spinal stenosis of lumbar region Heavy tobacco smoker current, 60pkyr history Midline low back pain with bilateral sciatica Bilateral hearing loss bilat hearing aids Chronic otitis externa (Chronic) Cataract Dupuytren's contracture of hand (Acute) Cerumen impaction Hearing loss Erectile disorder due to medical condition in male Medical History CAD (coronary artery disease) Benign essential hypertension Type 2 diabetes mellitus without complication, with no history of insulin use Hypercholesterolemia Actinic keratosis Situational stress Dupuytren's contracture of hand Hyperlipidemia Surgical History History of tooth extraction History of uvulectomy History of corrected cleft lip and palate Family History Other No family history of adverse response to anesthesia No family history of bleeding disorder Denies family history of Ovarian cancer Prostate cancer Clotting disorder Heart disease Myocardial infarction Breast cancer Colorectal cancer Cancer Hypertension Stroke Asthma Social History Smoking Status: Current every day smoker Tobacco Type: Cigarettes Age Started Using Tobacco: 9; packs per day: 1; Cigarettes Per Day: 1/2 PPD; Second Hand Exposure: Yes; Do You Dip or Chew Tobacco: No; Hx Alcohol Use: No Hx Substance Use: No Preferred Language: Croatian Communication Ability: Effective Visual Impairment: No Limitations Hearing Ability: Normal Feed Blender Required: No Beliefs That Will Affect Care: None marital status: Current Living Situation: Alone Current Living Situation Comment: single family home current occupational status: retired 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, 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 Safe at Home: Yes Childhood Exposure to Second-Hand Smoke: No Dental Care, Regularly: No Physical Activity Frequency: 3-4 Times per Week Seatbelt Use: never Sunscreen Use: Yes Assistive Devices: Walker Review of Systems Review of Systems: Constitutional: No Weight Change, No Fever, No Chills, No Night Sweats, No Fatigue, No Malaise on Changes Cardiovascular: No Chest Pain, No SOB, No PND, No Dyspnea on Exertion, No Orthopnea,, No Edema, No Palpitations Respiratory: No Cough, No Sputum, No Wheezing, No Smoke Exposure, No Dyspnea Gastrointestinal: No Nausea, No Vomiting, No Diarrhea, No Constipation, No Pain, No Heartburn, No Anorexia, , No Hematochezia, No Melena, Musculoskeletal: No Arthralgias, No Myalgias, No Joint Swelling, No Joint Sti ffness, No Back Pain, No Neck Pain, No Injury History Skin: No Skin Lesions, No Pruritis, No Hair Changes, No Breast/Skin Changes, No Nipple Discharge Neuro: No Weakness, No Numbness, No Paresthesias, No Loss of Consciousness, No Syncope, No Dizziness, No Headache, No Coordination Changes, No Recent Falls + for facial droop Psych: No Anxiety/Panic, No Depression, No Insomnia, No Personality Changes, Heme/Lymph: No Bruising, No Bleeding, No Transfusions History, No Lymphadenopathy Endocrine: No Polyuria, No Polydipsia, No Temperature Intolerance Physical Exam Physical Exam: VITALS: Reviewed. WEIGHT/BMI reviewed. GEN: Healthy appearing, well-developed, NAD. PSYCH: Good Judgment. AOx3. Normal memory, mood, and affect. HEENT Neuro: no pronator drift; + for facial droop; normal sensation to soft touch; normal finger to nose test able to hold feet against gravity for five seconds. 5/5 strength throughout able to name objects; able to repeat sentence. -Head: NC/AT; -Eyes: PERRL, EOMI. No discharge or redn ess; NECK: Supple, with no masses. CV: RRR, no m/r/g. LUNGS: CTAB, no w/r/c. ABD: Soft, NT/ND, NBS, no masses or organomegaly. : N/A MSK: No deformities, Normal gait. EXT: No clubbing, cyanosis, or edema. Results & Data Results & Data Vital Signs (Past 12 Hours) Vital Signs Temp Pulse Pulse Resp BP BP Pulse Ox 01/22/25 17:00 82 22 131/78 98 01/22/25 16:30 85 17 114/64 95 01/22/25 16:00 81 27 H 116/77 97 01/22/25 15:50 87 01/22/25 15:45 87 18 126/71 96 01/22/25 15:31 36.9 C 79 19 126/71 96 O2 Del Method 01/22/25 17:00 Room Air 01/22/25 16:30 01/22/25 16:00 01/22/25 15:50 01/22/25 15:45 01/22/25 15:31 Room Air Laboratory Results Laboratory Results - last 72 hr 01/22/25 01/22/25 01/22/25 15:47 15:49 16:19 WBC 6.46 RBC 3.38 L Hgb 11.2 L POC Hgb 10.5 L Hct 32.5 L POC Hct 31 L MCV 96.2 MCH 33.1 MCHC 34.5 RDW Std Deviation 45.9 RDW Coeff of Rene 13.1 Plt Count 197 MPV 9.1 L Immature Gran % (Auto) 0.2 Neut % (Auto) 57.4 Lymph % (Auto) 27.9 [place] % (Auto) 10.2 Eos % (Auto) 3.7 Baso % (Auto) 0.6 Neut # (Auto) 3.71 Lymph # (Auto) 1.80 [place] # (Auto) 0.66 H Eos # (Auto) 0.24 Baso # (Auto) 0.04 Immature Gran # (Auto) 0.01 PT 11.6 INR 1.1 APTT 27 PTT Ratio 1.0 POC Sodium 138 Sodium 135 L POC Potassium 3.5 Potassium 3.5 POC Chloride 101 Chloride 106 Carbon Dioxide 25 POC Total CO2 21 L Anion Gap 4 POC Anion Gap 20.0 POC BUN 19 H BUN 22 Creatinine 1.00 POC Creatinine 1.1 Est Cr Clr Drug Dosing 58.4 eGFR 78.49 BUN/Creatinine Ratio 22.0 H Glucose 175 H POC Glucose (other) 168 H Calcium 7.7 L POC Ioniz Calcium Adriana 1.08 L Magnesium 1.2 L Total Bilirubin 0.3 AST 16 ALT 28 Alkaline Phosphatase 39 Troponin I High Sens 3.7 Total Protein 5.4 L Albumin 3.4 Globulin 2.0 L Albumin/Globulin Ratio 1.7 Anaplasma Smear See Comment Babesia Smear See Comment Lyme Disease Screen Negative Diagnostic Findings Chest X-Ray 01/22/25 15:35 Technique: A frontal view of the chest was obtained Comparison is made to the prior examination dated 12/17/2024 Findings: There are no confluent pulmonary infiltrates. The heart size is within normal limits. No pleural effusion or pneumothorax is seen. There is no definite pulmonary nodule. No fracture is noted. There is mild scoliosis Impression: No active disease Electronically signed by Favian Munson 01-22-2025 4:[address] 01/22/25 15:35 CT head/brain wo con CLINICAL HISTORY: 74 years-old Male with neuro deficit, acute stroke suspected. Acute stroke like symptoms with confusion and facial droop TECHNIQUE: Multiple axial CT images of the head were obtained without contrast. A dose lowering technique was utilized adhering to the principles of ALARA. CT DOSE: 1056.37 mGy.cm COMPARISON: CTA head of same day FINDINGS: No acute intracranial hemorrhage, midline shift, intracranial mass, hydrocephalus, territorial ischemia or abnormal extra-axial collection. Involutional changes with white matter hypodensities suggestive of chronic microvascular ischemic disease. Probable chronic tiny lacunar infarct of the right caudate nuclear head. The calvarium is intact. Prior bilateral lens repair. The paranasal sinuses, mastoid air cells, and middle ear cavities are clear. IMPRESSION: No acute intracranial abnormality. ACT 112: Negative or not required by law. The above report was generated using voice recognition software. It may contain grammatical, syntax or spelling errors. Electronically signed by: Imtiaz Hurst M.D. 01/22/2025 3:53 PM Head CTA 01/22/25 15:35 CT angio head w con CLINICAL HISTORY: neuro deficit, acute stroke suspected. TECHNIQUE: Unenhanced axial CT scan of the brain is performed. Subsequently, following the IV administration of 120 cc of Optiray, CT angiogram of the brain was performed from the skull base to the vertex. Images are reviewed in the axial, sagittal, and coronal planes. 3-D MIPS images are created and assessed. IV contrast was administered without complication. All measurements were obtained according to NASCET criteria. A dose lowering technique was utilized a dhering to the principles of ALARA. CT DOSE: 1056 COMPARISON STUDY: None FINDINGS: Distal internal carotid and vertebral arteries show no significant narrowing or occlusion. Anterior, middle, and posterior cerebral arteries are patent bilaterally. There is origin of the right [employer] WE[employer]EL[employer], anatomic variant. No intracranial aneurysm seen. Cerebral venous sinuses opacify normally. IMPRESSION: No significant arterial narrowing or occlusion seen at the brain. ACT 112: Negative or not required by law. The above report was generated using voice recognition software. It may contain grammatical, syntax or spelling errors. Electronically signed by: Martin Blanc M.D. 01/22/2025 3:57 PM Neck CTA 01/22/25 15:35 CT angio neck with con CLINICAL HISTORY: 74 years-old Male with neuro deficit, acute stroke suspected. Acute stroke like symptoms COMPARISON STUDY: CTA head of same day TECHNIQUE: Following the IV administration of 119 mL of Optiray, CT angiogram of the neck was performed from the aortic arch to the skull base. Images are reviewed in the axial, sagittal, and coronal planes. 3-D MIPS images are created and assessed. IV contrast was administered without complication. All measurements were calculated based on NASCET criteria. A dose lowering technique was utilized adhering to the principles of ALARA. FINDINGS: Three-vessel morphology of the thoracic cord. Patency of the innominate and image subclavian arteries. Atherosclerosis of the carotid bulbs without high- grade stenosis. Patent and codominant vertebral arteries. The basilar artery also appears patent. Stenosis of the left breast right V2 segments of the vertebral arteries at the level of C5-C6 secondary to a circumferential disc osteophyte complex with facet arthrosis. This causes approximately 70 % stenosis of the left vertebral artery. Lung apices appear clear. Emphysema with bronchial wall thickening. Mild biapical pleural-parenchymal scarring. Areas of mild mucous plugging. Multinodular thyroid goiter. Unremarkable soft tissues. 1.5 cm left maxillary sinus polyp. Degenerative changes of the cervical spine. IMPRESSION: 1. Atherosclerosis of the carotid bulbs without significant stenosis. 2. Short segment high-grade stenosis of the V2 segment left vertebral artery at the level of C5-C6 secondary to a circumferential disc osteophyte complex with facet arthrosis ACT 112: Negative or not required by law. The above report was generated using voice recognition software. It may contain grammatical, syntax or spelling errors. Electronically signed by: Imtiaz Hurst M.D. 01/22/2025 3:57 PM Medications Administered Current Inpatient Medications Heparin Sodium (Porcine) (Heparin Sod 5,000 Unit/0.5 Ml Vial) 5,000 units SQ Q12 [facility] Stop: 02/21/25 20:59 Magnesium Sulfate/Dextrose (Magnesium Sulfate / D5w) 1 gm in 100 mls @ 100 mls/hr IV Q1H [facility] Stop: 01/22/25 18:43 Last Admin: 01/22/25 16:56 Dose: 100 mls/hr Sodium Chloride (Nss) 1,000 mls @ 55 mls/hr IV .[id number] [facility]ILDA Stop: 01/24/25 05:51 Last Admin: 01/22/25 17:31 Dose: 55 mls/hr Sucralfate (Sucralfate 1 Gm/10 Ml Udc) 1 gm PO QID [facility] Stop: 02/21/25 20:59 Code Status & VTE Plan Code Status Full code VTE Prophylaxis Plan VTE Prophylaxis will be ordered: Yes PG Care Time/CCT Total # of Minutes Spent Total Time Spent with Patient: Total time spent is greater than 50% in coordination of care (as documented) at patient's floor/unit and/or counseling patient: Coding Level of Care Code 98781 INT INP/OBS CARE 2/55MIN Diagnoses Stroke I63.9 Facial droop R29.810 Time Spent (min) 55
[2025-01-22] MEDS: SODIUM CHLORIDE 0.9% 1,000 ML IV SCH (17:31)
[2025-01-22] MEDS: GADOBUTROL 65ML VIAL IV ONE (18:25)
--- NOTE | 2025-01-22 19:26 | Magnetic Resonance Report ---
Clinical History: Left-sided facial weakness Technique: Multiple T1 and T2-weighted magnetic resonance images were obtained of the brain before and after the administration of 7.6 cc of Gadavist intravenous gadolinium contrast Findings: There is no sign of acute infarction with normal-appearing diffusion weighted images. There is cerebral atrophy, within expected limits for the patient's age. There are focal and confluent areas of increased T2 signal intensity within the periventricular white matter of the cerebral hemispheres bilaterally. This is most likely due to chronic small vessel ischemic disease. There is a small old infarct of the right caudate nucleus No mass lesion or other area of abdominal enhancement is seen. There is no intracranial hemorrhage or other fluid collection. No midline shift or other form of herniation is seen. There is no hydrocephalus. Normal flow-voids are seen within the arteries of the [id number]. The orbits appear unremarkable. There are mucus retention cysts in the maxillary sinuses bilaterally. There is nasal septum deviation. The mastoid air cells appear clear. Impression: 1. Cerebral atrophy and chronic small vessel ischemic disease 2. No sign of acute infarction or mass lesion 3. Old right basal ganglia infarct 4. Chronic sinusitis Electronically signed by Favian Munson 01-22-2025 7:25 PM
[2025-01-22] MEDS ORDERED: IBUPROFEN 200 MG TAB PO PRN (19:45)
[2025-01-22] MEDS ORDERED: NITROGLYCERIN SL 0.4 MG/TAB TAB SL PRN (19:45)
[2025-01-22] MEDS ORDERED: [UNRECOGNIZED DRUG - SUPPLY] SCH (21:00)
[2025-01-22] MEDS ORDERED: NON-FORMULARY MEDICATION (Blood Sugar Diagnostic [Onetouch Verio Test Strips] strip) SCH (21:00)
[2025-01-22] MEDS ORDERED: BLOOD GLUCOSE METER SCH (21:00)
[2025-01-22] MEDS: ROSUVASTATIN CALCIUM 20 MG TAB PO SCH (21:14)
[2025-01-22] MEDS: TICAGRELOR 90 MG TAB PO SCH (21:15)
[2025-01-22] MEDS: METOPROLOL TARTRATE 50 MG TAB PO SCH (21:16)
[2025-01-22] MEDS: HEPARIN SOD 5,000 UNIT/0.5 ML VIAL SQ SCH (21:20)
[2025-01-22] MEDS: SUCRALFATE 1 GM/10 ML UDC PO SCH (21:29)
[2025-01-22 21:33] LABS: Appearance Urine Clear (Clear); Glucose Urine UA 3+ (Negative)
[2025-01-23 07:50] VITALS: RESP 16; TEMP 97.5
[2025-01-23 08:04] LABS: Hematocrit (blood only) 41.0 % (42.0-52.0); Hemoglobin 14.2 g/dl (14.0-18.0); Mean Corpuscular Hemoglobin 32.9 pg (25.0-34.0); Mean Corpuscular Volume 94.9 fL (80.0-100.0); Platelet Count 207 K/uL (130-400); RDW Standard Deviation 44.8 fL (36.4-46.3); Red Blood Count 4.32 M/uL (4.70-6.10); White Blood Count 6.88 K/ul (4.8-10.8)
[2025-01-23 08:24] LABS: Alanine Aminotransferase 35.0 U/L (7-52); Albumin Globulin Ratio 1.6 (0.9-2); Alkaline Phosphatase 48.0 U/L (34-104); Anion Gap 6.0 (3-11); Bilirubin,Total 0.6 mg/dl (0.2-1.0); Blood Urea Nitrogen 18.0 mg/dl (6-23); Calcium 8.7 mg/dl (8.6-10.3); Carbon Dioxide 28.0 mmol/L (21-32); Chloride 108.0 mmol/L (98-107); Creatinine Clr Calc Pharmacy 63.4 ml/min; Globulin 2.6 gm/dl (2.5-4.0); Glucose 139.0 mg/dl (70-99(Fasting)); Potassium 3.9 mmol/L (3.5-5.1); Sodium 142.0 mmol/L (136-145); Total Protein 6.8 gm/dl (6.0-8.3)
[2025-01-23] MEDS: ASPIRIN 81 MG ECTAB PO SCH (08:24)
[2025-01-23] MEDS: ASCORBIC ACID 500 MG TAB PO SCH (08:24)
[2025-01-23] MEDS: CYANOCOBALAMIN (B-12) 500 MCG TABLET PO SCH (08:24)
[2025-01-23 11:49] VITALS: PULSE 69; O2SAT 95
--- NOTE | 2025-01-23 12:59 | Electrocardiogram Report ---
Test Reason : Blood Pressure : */* mmHG Vent. Rate : 82 BPM Atrial Rate : 82 BPM P-R Int : 180 ms QRS Dur : 86 ms QT Int : 376 ms P-R-T Axes : 53 44 61 degrees QTcB Int : 439 ms Normal sinus rhythm Normal ECG When compared with ECG of 18-Dec-2024 08:18, Premature atrial complexes are no longer Present Confirmed by Tru Argueta ([id number]) on 01/23/2025 12:58:57 PM Referred By: REFERRED SELF Confirmed By: Tru Argueta
[2025-01-23 13:29] LABS: Magnesium 1.8 mg/dl (1.7-2.4)
[2025-01-23] MEDS: predniSONE 20 MG TAB PO SCH (13:29)
--- NOTE | 2025-01-23 13:47 | XCELERA ---
[id number]
[2025-01-23 15:35] VITALS: BP 148/87
[2025-01-23] MEDS ORDERED: OMEGA-3 (PURIFIED FISH OIL) 1 GM CAP PO SCH (16:30)
[2025-01-23] MEDS ORDERED: PYRIDOXINE HCL 50 MG TAB PO SCH (16:30)
[2025-01-23] MEDS ORDERED: MULTIVITAMIN TAB PO SCH (16:30)
--- NOTE | 2025-01-23 18:01 | Discharge Summary ---
Discharge Summary Date of Service January 23, 2025 Principal Dx & Hospital Course #1 = Principal Diagnosis (1) Stroke: Mr. Riccardo Miranda is a 74 yo male with PMH of CAD s/p stent to RCA, smoking (2ppd since age 9), diabetes, lung nodules, mood disorder he's cutting down to half pack per day. was in the hospital recently for chest pain and s/p PCI, recommened aspirin and brilinta for 1-2 years on Tuesday he's noticed facial droop around 7am, his facial droop persist and he's came to our hospital for evaluation his CTA show stenosis in the vertebral artery (V2 segment, left side at the c5- c6 origin). plan for brain MRI w/wo contrast. CVA rule out. he will has echo with bubble studies to r/o PFO he's likely need event monitor 1. left side facial droop, acute CVA 2. hx of smoking (2 ppd since age 9) 3. CAD s/p PCI to RCA on brilinta and aspirin 4. lung nodule 5. diabetes 6. mood disorder. 7. GERD 1. left side facial droop, he's smoke 2 ppd since age 9 his brain MRI is negative for stroke CTA found high grade stenosis of V2 segment of left vertebral artery he will need to f/u with vascular surgery in addition, his facial droop persist on day 2 concern for Wang palsy started on prednisone 60mg for 9 days dc home on 01/23, discussed at length about quitting smoking risk of , stroke, cancer, disability explained at length he was told to return to ED for evaluation if worsening dizziness, numbness, f acial droop 2. CAD s/p PCI to RCA Brilinta and aspirin s/p aspirin 162mg today. increasing PPI to BID metoprolol tartrate 50mg BID, 3. diabetes, he's on jardian 10mg daily. he's on dlaglutide 1.5mg weekly injection hold hold med of metformin 1000mg BID 4. mood disorder; sertalin 50mg daily; wellbutrin 300mg ER 5. GERd, he's normally on omeprazole 40mg daily while increase his aspirin dose, give PPI BID (2) Facial droop: Notes For Next Care Provider referral to vascular surgery for carotid stenosis prednisone for wang palsy f/u on A. phagocytophilium DNA f/u on Babesia repeat lyme titer Admission HPI Per Admitting Provider Riccardo Miranda is a 74 yo male with PMH of CAD s/p stent, smoking (2ppd since age 9) , pulmonary nodules. diabetes,mood disorder. he was in the hospital for chest pain and found to has severe RCA disease and s/p PCI and on aspirin, brilinta and crestor 40mg he's recently cut down to half pack per day on 01/22, he's woke up at 5am, and then when look into the mirror at 7am, he's noticed severe side left facial droop he took his morning med, but then facial droop persist and came to our hospital for stroke evaluation. his CTA found short term high grade stenosis of V2 segment of left vertebray artery at the level of c5-c6. our ED attending also evaluating him for lyme disease, anaplasma, babesia on interview at 5pm, he's still has facial droop denied any focal weakness, no sensory change, no problem with comprehension and expressive himself he's outside the t-PA window he's mentioned having taken aspirin and brilinta this morning he will be admitted for stroke evaluation, started him on aspirin 81mg, plan to increase his protonix from qd to BID. he's is full code his is in long term with dementia his niece (Lor) live in [facility] (contact number is [phone]) no palpitation, no chest pain, no shortness of breath Discharge Exam VITALS: Reviewed. WEIGHT/BMI reviewed. GEN: Healthy appearing, well-developed, NAD. PSYCH: Good Judgment. AOx3. Normal memory, mood, and affect. HEENT -Head: NC/AT; + for left side facial droop from wang palsy NECK: Supple, with no masses. CV: RRR, no m/r/g. LUNGS: CTAB, no w/r/c. ABD: Soft, NT/ND, NBS, no masses or organomegaly. SKIN: Warm, well perfused. No skin rashes or abnormal lesions. MSK: No deformities, Normal gait. EXT: No clubbing, cyanosis, or edema. NEURO: Ambulating with no limitations. Normal muscle strength and tone. No focal deficits. Discharge Plan Discharge Items Patient Disposition: Home - Self-Care Reason For Visit: STROKE, LEFT FACIAL DROOP SINCE 7AM Discharge Diagnosis: Wang palsy; facial droop Condition on Discharge: Fair Activity: Per Instructions section Lifting: Gradually increase as tolerated Driving/Machine Use: Resume 1 day after discharge Non-emergency contact: Primary Care Provider Call non-emergency contact if: your symptoms worsen and you have a fever Follow-up/Referrals: Buffy Perales MD [Primary Care Provider] - 01/30/25 9:00 am (Hospital follow up is scheduled for January 30, 2025 at 9:00 am) Diet: Carb Consistent or DM2 and Low Fat Addtl Attending Provider Instructions: you need to follow up with vascular surgery about the carotid stenosis in addition, you will take prednisone for 10 days repeat lyme titer Pending Studies at Discharge: Yes Studies:: repeat lyme titer; low dose CT chest screening Stand-Alone Forms: My [place], Smoking Cessation Medications and DC Order Prescriptions: New prednisone 20 mg Tablet 60 mg PO DAILY 9 Days Qty: 27 0RF Continued ibuprofen 200 mg tablet 200 mg PO Q6H PRN (Reason: Pain) aspirin 81 mg tablet,delayed release (DR/EC) 81 mg PO DAILY Qty: 30 2RF Farxiga 10 mg tablet 10 mg PO DAILY Qty: 90 3RF metformin 500 mg tablet extended release 24 hr 1,000 mg PO BID Qty: 360 3RF (DME) OneTouch Verio test strips Strip See Rx Instructions .Route Qty: 100 3RF Rx Instructions: As directed to check sugars up to twice daily dulaglutide 1.5 mg/0.5 mL pen injector 1.5 mg subcut WK Qty: 6 3RF Rx Instructions: ascorbic acid (vitamin C) 500 mg tablet 500 mg PO QAM multivitamin [Daily Multi-Vitamin] tablet 1 tab PO QDD (DME) blood-glucose meter [OneTouch Verio Meter] Misc See Rx Instructions .Route Qty: 1 0RF Rx Instructions: As directed to check sugars up to twice daily (DME) lancing device with lancets [Ghz TechnologyTouch Delica Plus Lanc Dev] Kit See Rx Instructions .Route Qty: 1 0RF Rx Instructions: As directed to check sugars up to twice daily cyanocobalamin (vitamin B-12) 1,000 mcg capsule 1,000 mcg PO DAILY Qty: 90 3RF rosuvastatin 40 mg tablet 40 mg PO DAILY Qty: 90 3RF metoprolol tartrate 50 mg tablet 50 mg PO BID Qty: 180 3RF ticagrelor [Brilinta] 90 mg tablet 90 mg PO BID Qty: 180 3RF omeprazole 40 mg capsule,delayed release(DR/EC) 40 mg PO DAILY Qty: 90 1RF pyridoxine (vitamin B6) [Vitamin B-6] 100 mg Tablet 200 mg PO QDD omega 3-yew-vps-fish oil [Fish Oil] 1,200 (144-216) mg Capsule 1 cap PO QDD nitroglycerin [Nitrostat] 0.4 mg Tablet, Sublingual 0.4 mg sublingual Q5M PRN (Reason: chest pain) Qty: 25 4RF bupropion HCl 150 mg tablet sustained-release 12 hr 150 mg PO QAM Discharge Orders: Discharge Order (Routine); Ordered 01/23/25 Ordered By: Reyna Montgomery/Other Patient Handouts: Managing Type 2 Diabetes, Wang's Palsy Admission Data Admit Date/Time: 01/22/25 17:19 Attending Provider: Reyna Liu Admit Provider: Reyna Liu Primary Care Provider: Buffy Perales Other Providers: Jeremy Walton Other Interventions: Discharge Summary Assessment (RN) Last Done: 01/23/25 15:34 Hospital Stay Data Consultations 01/22/25 16:50 ED Decision to Admit Stat Diagnostic Imagining Performed 01/22/25 15:35 CT angio head w con Stat CT angio neck with con Stat CT head/brain wo con Stat 01/22/25 17:25 MRI Brain [MR brain wo/w con] Stat Pending Results Patient Have Any Pending Studies at Discharge: Yes Discharge Instructions Given to Patient (Per Discharging Provider) you need to follow up with vascular surgery about the carotid stenosis in addition, you will take prednisone for 10 days repeat lyme titer Total Time Total Time Spent Total Time Spent (In Minutes): 35 Coding Level of Care Code 33110 IN/OBS DISCH 30 MIN/LESS Diagnoses Stroke I63.9 Facial droop R29.810 Time Spent (min) 30
== END 2025-01-23 15:34 | disposition home or self-care (01) | DRG 74 ==
LOC: ED 15:31 → 2S 17:19 → INTOOBSV 17:19 → 2S 19:19